=== PATIENT | male | born 1995 | race Caucasian/White ===

== ENCOUNTER 2017-11-15 20:18 | Emergency (ER) | payer SELFPAY ==
[~2017-11-15] VITALS: Ht 172.7 cm; Wt 72.0 kg
[~2017-11-15 20:18] MED LIST: ARIP2TAB3 PO; METO-396 PO
[2017-11-15 21:10] VITALS: BP 114/78
== END 2017-11-15 21:50 | disposition home or self-care (01) ==
LOC: ER 20:23
DX: S61.411A Laceration without foreign body of right hand, initial encounter (principal); F90.9 Attention-deficit hyperactivity disorder, unspecified type; I10 Essential (primary) hypertension; F17.210 Nicotine dependence, cigarettes, uncomplicated; W25.XXXA Contact with sharp glass, initial encounter; Y93.89 Activity, other specified; Y92.018 Other place in single-family (private) house as the place of occurrence of the external cause
CPT/HCPCS: 99283; Z7610

== ENCOUNTER 2020-01-21 10:38 | Emergency (ER) | payer MEDICAID ==
[~2020-01-21] VITALS: Ht 167.6 cm; Wt 65.0 kg
[2020-01-21 10:53] VITALS: BP 139/88
[2020-01-21] MEDS ORDERED: KETOROLAC 30MG/ML VIAL IM ONE (11:30)
== END 2020-01-21 12:04 | disposition home or self-care (01) ==
LOC: ER 10:38
DX: S46.911A Strain of unspecified muscle, fascia and tendon at shoulder and upper arm level, right arm, initial encounter (principal); Y93.84 Activity, sleeping; Y92.013 Bedroom of single-family (private) house as the place of occurrence of the external cause; R03.0 Elevated blood-pressure reading, without diagnosis of hypertension
CPT/HCPCS: 96372; 99283; J1885